=== PATIENT | female | born 1980 | race Caucasian/White ===

== ENCOUNTER 2022-06-10 00:44 | Day surgery (SDC) | payer BC, SELFPAY ==
[2022-06-06 10:45] VITALS: BMI 33.0
--- NOTE | 2022-06-06 10:50 | PC.NURSE ---
Report to the Outpatient Waiting Room, entrance under the green pavilion located off [facility], at time 0600 on date 06/10/22. Planned Procedure Time: 0730. Time changes happen often and if your time is changed the preop area will call you the afternoon before. - You and your visitor will be asked to self-screen and do not enter if you have any COVID symptoms. - Only one visitor is requested with a max of two and NO children visitors are allowed at this time. - The patient visitor may be requested to leave or wait in car when not with patient due to distancing restrictions. - A mask is optional within the hospital. Patients may have clear liquids (water, carbonated beverages, clear teas, apple juice) until 3 hours prior to surgery with a maximum of 20 ounces. - No food from midnight until time of surgery Take the following medications with a SIP of water the morning of surgery: NONE Medications to discontinue per physician: N/A Date to take last dose: N/A Please no make-up, nail greenlandic, hairspray, perfume, deodorant, or body powder the day of surgery. No jewelry (including any body piercings) or valuables the day of surgery, leave them at home. Please take a shower or bath the night before, or the morning of, surgery with an antibacterial soap. Wear comfortable, loose fitting clothing. - Jewelry must be removed prior to entering the operating room. Rings and piercings that are not removed may be cut off. - The hospital will not accept responsibility for valuables. - Please leave all valuables, including medications, at home the day of surgery. If you are going home after surgery, a licensed hole digger truck driver must drive you home. - NO public transportation without another adult if you receive anesthesia. - We recommend that an adult stay with you for 24 hours following discharge. - We also recommend that you do not drive, make important decision, drink alcoholic beverages, or take any drugs that were not prescribed by your health care provider for at least 24 hours after your discharge time. Follow any additional instructions given to you from your surgeon. If you or anyone in your household have experienced Covid symptoms in the past week, please notify your surgeon or the nurse liaison at the phone number below for possible testing. Telephone instructions given to PT - WARD CEDENO and asked if any additional questions and then verbalized understanding. Patient advised to call surgeon office or pre surgery nurse liaison [phone] if any additional questions.
--- NOTE | 2022-06-08 07:47 | PM.IMHP ---
H&P: HPI History of Present Illness Date/Time: 06/08/22 07:47 Chief Complaint: Pelvic pain and right ovarian cyst Narrative: Is a 41 year 3 para 3 status post hysterectomy admitted for left oophorectomy. Skin complex right ovarian cyst measuring 22cm in size. The opposite ovary has been removed. Risks and benefits reviewed including not exclusive of , aspiration, bleeding, transfusion, perforation of bowel, bladder, ureters, or other internal organs with need for open laparotomy. She received the [employer] handout entitled laparoscopy. She had all questions answered. She asked to proceed [facility] Social History Social History Smoking status: Never smoker Alcohol intake: never Substance use: never Substance use type: does not use Living arrangements: with family Spiritual care concerns: No Meds Home Medications and Allergies Home Medications Medication Instructions Recorded Confirmed Type lisinopril 20 mg tablet 20 mg PO DAILY 06/06/22 06/06/22 History sertraline 100 mg tablet 100 mg PO HS 06/06/22 06/06/22 History Allergies Allergy/AdvReac Type Severity Reaction Status Date / Time ciprofloxacin Allergy Unknown RASH Verified 06/06/22 10:44 neomycin Allergy Unknown RASH Verified 06/06/22 10:44 sulfamethoxazole Allergy Unknown RASH Verified 06/06/22 10:44 trimethoprim Allergy Unknown RASH Verified 06/06/22 10:44 ceftriaxone [From Rocephin] Allergy Rash Verified 06/06/22 10:44 Exam Const: General: cooperative, healthy appearing and comfortable Nutritional Appearance: average body habitus Orientation/consciousness: oriented to person, oriented to place and oriented to time HENMT: Head: normal to inspection Resp: Effort & Inspection: normal respiratory effort Cardio: Rate: regular rate Rhythm: regular rhythm Heart sounds: S1 normal heart sound present and S2 normal heart sound present GI: Inspection: normal to inspection Auscultation: normal bowel sounds : External Female Exam: normal external appearance Speculum Exam - Vagina: normal appearance of the vagina Speculum Exam - Cervix: Cervix absent Bimanual exam- vagina & uterus: uterus absent Bimanual Exam- Adnexa, other: Adnexal mass present (MS is filled centrally maximally 22 weeks in size) Assessment and Plan Assessment and plan (1) Complex ovarian cyst: Code(s): N83.299 - Other ovarian cyst, unspecified side Status: Acute Plan Laparoscopic oophorectomy
[2022-06-10] VITALS (9 sets, daily range): BP systolic 80–135; BP diastolic 32–81; PULSE 71–86; RESP 14–24; TEMP 36.2–37.2; O2SAT 93–100
--- NOTE | 2022-06-10 05:52 | ECG_ITS ---
Measurements Intervals [place] Rate: 72 P: 69 DE: 163 QRS: 62 QRSD: 105 T: 45 QT: 391 QTc: 431 Interpretive Statements SINUS RHYTHM NORMAL ECG NO PREVIOUS ECG AVAILABLE FOR COMPARISON Electronically Signed On 06-10-2022 8:08:22 HOUSEKEEPING ROOM ATTENDANT by Negro Wilson D.O.
[2022-06-10] MEDS: ACETAMINOPHEN 500 MG TABLET 1000 MG PO (06:11)
[2022-06-10] MEDS: LACTATED RINGERS 1,000 ML 30 ML IV CONT ×2 (06:25→10:00)
[2022-06-10] MEDS: KETOROLAC 15 MG/ML VIAL (*BKC) IV PUSH (06:30)
--- NOTE | 2022-06-10 06:39 | P.PNAN_ITS ---
Anes - Initial Pre Proc Eval Procedure: Operation Date: 06/10/22 07:30 Proposed Procedures p Laparoscopic Right Salpingo oophorectomy - Israel Soares MD Date/Time: 06/10/22 06:39 Surgeon: Israel Soares MD Pre Op Diagnosis: right ovarian cyst, pain Patient Data Age: 42 Gender: F Height: 1.78 m Weight: 104.3 kg Last Vital Signs Temp 37.2 C 06/10/22 06:01 Pulse 79 06/10/22 06:01 Resp 20 06/10/22 06:01 BP 135/81 06/10/22 06:01 Pulse Ox 100 06/10/22 06:01 O2 Del Method Room Air 06/10/22 06:01 Allergies Allergy/AdvReac Type Severity Reaction Status Date / Time ceftriaxone [From Rocephin] Allergy Unknown Rash/High Verified 06/10/22 06:02 fever ciprofloxacin Allergy Unknown RASH Verified 06/06/22 10:44 neomycin Allergy Unknown RASH Verified 06/06/22 10:44 sulfamethoxazole Allergy Unknown RASH Verified 06/06/22 10:44 trimethoprim Allergy Unknown RASH Verified 06/06/22 10:44 Home Medications Medication Instructions Recorded Confirmed Type lisinopril 20 mg tablet 20 mg PO DAILY 06/06/22 06/10/22 History sertraline 100 mg tablet 100 mg PO HS 06/06/22 06/10/22 History omeprazole 20 mg capsule,delayed 20 mg PO DAILY 06/10/22 06/10/22 History release Patient hx anesthesia problems: none Family hx anesthesia problems: none Results Review: All pre-operative results and documents have been reviewed as part of the pre- operative evaluation. [facility] Past Medical History Medical History (Updated 06/10/22 @ 06:39 by Israel Barbosa MD) Anxiety HTN (hypertension) Obesity Surgical History Surgical History (Updated 06/10/22 @ 06:42 by Israel Barbosa MD) H/O: hysterectomy Social History Social History Smoking status: Never smoker Alcohol intake: never Substance use: never Substance use type: does not use Living arrangements: with family Spiritual care concerns: No Anes - Eval Final PreProcedure Day of Procedure 06/10/22 06:39 Patient weight: obese Heart: regular rate and rhythm Lungs: clear to auscultation Airway: Mallampati scale class II Neurological: alert and oriented Last oral intake: >/= 8 hours ASA classification: II Emergent: no Anesthetic plan: proceed Anesthesia type and monitoring: general ETT and standard monitoring Results Review: All pre-operative results and documents have been reviewed as part of the pre- operative evaluation. Informed Consent: The patient's anesthetic plan and its attendant risks and benefits were discussed with the patient/family/POA. Questions were solicited and answers provided to the satisfaction of the patient/family/POA.
[2022-06-10] MEDS: SCOPOLAMINE 1.5 MG PATCH TRANSDERM (06:46)
--- NOTE | 2022-06-10 07:07 | WPDHPUPDATE1 ---
History and Physical Update Update Date/Time: 06/10/22 07:07 History and Physical has been reviewed, including an updated exam of the patient. There are NO changes in the patient's condition. Risks, benefits, and alternatives have been discussed and questions answered. Patient agrees to proceed with procedure.
--- NOTE | 2022-06-10 09:49 | P.OP_ITS ---
Procedure Note - Detailed Date of Procedure 06/10/22 Pre-op Diagnosis right ovarian cyst, pain Post-op Diagnosis Same Procedure Performed Laparoscopic right oophorectomy and extensive lysis of adhesions Surgeon Israel Soares MD Anesthesia General Indications this is 42-year-old female status post hysterectomy with 22-24 cm ovarian cyst on the right. Findings Uterus left ovary absent. We large ovarian cyst with 4.5L of fluid in it that was adherent to the omentum. Had a very benign appearance Description of Procedure patient is prepped draped normal sterile fashion placed in dorsal lithotomy position. Under excellent general trach anesthesia weighted speculum placed in posterior fornix vagina. Sponge stick placed in the bladder drained of clear urine. The weighted speculum was removed the gloves were changed. A left upper quadrant incision made in the Veress needle passed in the abdomen. Abdomen filled with CO2 gas to 15mm Hg. The 5mm trocar advanced under direct visualization assuring no injury. The ovarian cyst was noted to take up the entire the pelvis and most to the abdomen. A supraumbilical incision made a 5mm trocar advanced under direct visualization. As it had a benign look a puncture wound was made and the cyst was suctioned 4.4L of fluid. There were marked adherent areas from the omentum to the top of the ovarian cyst. A right lower incision made the 10mm trocar visualization using the LigaSure the omentum was sharply dissected cauterization clear. The pedicle was then noted right this was skeletonized clamping burning and cutting with the LigaSure. At that point the the cyst was grasped and brought through the lower right quadrant. This was extended slightly and was brought out piecemeal until all pieces were out. Vigorous irrigation was undertaken until clear and blood loss was estimated [id number]. The trocars were removed and the gas removed from the abdomen. The right lower quadrant incision was closed with running 0 chromic an d the fascial layer and the skin on each incision closed with 4 Monocryl and glue blood loss estimated 100cc. All sponge, needle, instrument counts were correct. There were no immediate complications noted every pedicle appeared dry Estimated Blood Loss 100 Drains No Packing No Pathology Yes Complications No immediate complications Condition Stable Disposition PACU
[2022-06-10] MEDS: oxyCODONE HCL (*CRX) 5 MG TAB IR PO (11:21)
== END 2022-06-10 12:07 | disposition home or self-care (01) ==
PROVIDERS: PCP Family Medicine; Visit Provider Obstetrics & Gynecology
PROC: (CPT 49320; principal; 2022-06-10 07:30)
DX: C56.1 Malignant neoplasm of right ovary (principal); N73.6 Female pelvic peritoneal adhesions (postinfective); I10 Essential (primary) hypertension; F41.9 Anxiety disorder, unspecified; E66.9 Obesity, unspecified; Z68.33 Body mass index [BMI] 33.0-33.9, adult
CPT/HCPCS: 58661; 36415; 86850; 86900; 86901; 88305; 93005; A9270; J1100; J1885; J2250; J2370; J2405; J2704; J2710; J3010; J7030; J7120

== ENCOUNTER 2022-06-23 10:19 | Outpatient (CLI) | payer BC, SELFPAY ==
--- NOTE | ~2022-06-23 | CT_ITS ---
EXAMINATION: CT abdomen pelvis w con DATE: 06/23/2022 10:49 INDICATION: Ovarian cancer. TECHNIQUE: Computed tomography (CT) of the abdomen and pelvis was performed with 100 mL Omnipaque 350 intravenous contrast. Automated exposure control and iterative reconstruction technique were employe d. The dose-length product was 1143.84 mGy-cm. COMPARISON: None. FINDINGS: The visualized portions of the lung bases demonstrate mild atelectasis. Calcified right jacques g nodules are consistent with old granulomatous disease. No pleural effusion. The heart size is candido l. No pericardial effusion. There is a 5 mm cyst in the liver. The gallbladder is normal. Calcificati ons in the spleen are consistent with old granulomatous disease. The pancreas, adrenal glands, and ki dneys are normal. There are no dilated loops of bowel. The appendix is normal. There are no pathologi jon enlarged lymph nodes. There is no free intraperitoneal fluid. There is stranding in the subcuta neous fat in right lower quadrant, likely inflammation from recent surgery. There is mild thoracolumb ar spondylosis. IMPRESSION: 1. No evidence of metastatic disease. Reviewed, dictated and finalized at location A. R [employer]
[2022-06-23 10:44] LABS: Estimated Glomerular Filt Rate > 60
== END 2022-06-23 10:20 | disposition home or self-care (01) ==
PROVIDERS: PCP Family Medicine; Visit Provider Obstetrics & Gynecology
DX: C56.9 Malignant neoplasm of unspecified ovary (principal)
CPT/HCPCS: 74177; Q9967